=== PATIENT | male | born 1945 | race Caucasian/White ===

== ENCOUNTER 2022-02-25 17:54 | Inpatient (IN) | payer OTHER ==
[~2022-02-25] VITALS: Ht 172.7 cm; Wt 69.2 kg
[2022-02-25] MEDS ORDERED: ACCU-CHEK COMFORT CURVE STRIP VI ONE (19:30)
[2022-02-25 22:36] LABS: Basophils # (auto) 0 10 ^3/uL (0-0.2); Basophils % (auto) 0.3 % (0.0-2.0); Eosinophils # (auto) 0 10 ^3/uL (0-0.8); Eosinophils % (auto) 0.1 % (0.0-7.0); Hematocrit 45.8 % (41.0-53.0); Hemoglobin 14.2 g/dL (13.5-17.5); Lymphocytes # (auto) 0.4 10 ^3/uL (0.4-5.4); Lymphocytes % (auto) 6.5 % (10.0-50.0); Mean Corpuscular Hemoglobin 30.7 pg (28.0-32.0); Mean Corpuscular Hgb Conc. 30.9 g/dL (32.0-36.0); Mean Corpuscular Volume 99.3 fL (80.0-100.0); Monocytes # (auto) 0.9 10 ^3/uL (0-1.3); Monocytes % (auto) 13.8 % (0.0-12.0); Neutrophils # (auto) 4.9 10 ^3/uL (1.6-8.6); Neutrophils % (auto) 79.3 % (37.0-80.0); Nucleated Red Blood Cells % 0.1 %; Red Blood Cells 4.62 10^6/uL (4.5-5.90); Red Cell Distribution Width 15.3 % (11.8-14.3); White Blood Cell 6.2 10^3/uL (4.4-10.8)
[2022-02-25 23:09] LABS: Albumin 3.5 g/dL (3.4-5.0); Potassium 4.2 mmol/L (3.5-5.1)
[2022-02-25 23:12] LABS: Bilirubin, Total 0.8 mg/dL (0.2-1.0); Total Protein 6.5 g/dL (6.4-8.2)
[2022-02-25 23:19] LABS: Thyroid Stimulating Hormone 0.47 uIU/mL (0.358-3.74)
[2022-02-26] MEDS ORDERED: HYDROcodone-ACET 5/325MG TAB PO PRN (00:15)
[2022-02-26] MEDS ORDERED: DOCUSATE SOD 100 MG CAP PO PRN (00:15)
[2022-02-26] MEDS ORDERED: ACETAMINOPHEN 325 MG TAB PO PRN (00:15)
[2022-02-26] MEDS ORDERED: NITROGLYCERIN 0.4 MG SL TAB SL PRN (00:30)
[2022-02-26] MEDS ORDERED: MORPHINE SULFATE INJ 2 MG/ml SYRG IV PRN (00:30)
[2022-02-26 02:43] LABS: Eosinophils # (auto) 0 10 ^3/uL (0-0.8); Lymphocytes # (auto) 0.7 10 ^3/uL (0.4-5.4); Nucleated Red Blood Cells % 0.1 %
[2022-02-26 03:10] LABS: Albumin 3.5 g/dL (3.4-5.0); Potassium 4.2 mmol/L (3.5-5.1)
[2022-02-26 03:12] LABS: BUN/Creatinine Ratio 10.9
[2022-02-26 03:15] LABS: Bilirubin, Total 0.8 mg/dL (0.2-1.0); Total Protein 6.7 g/dL (6.4-8.2)
[2022-02-26 04:50] VITALS: BP 133/76
[2022-02-26 05:00] VITALS: BP 133/76
[2022-02-26 05:54] LABS: Basophils # (auto) 0 10 ^3/uL (0-0.2); Basophils % (auto) 0.4 % (0.0-2.0); Eosinophils % (auto) 0.1 % (0.0-7.0); Hematocrit 42.4 % (41.0-53.0); Hemoglobin 13.8 g/dL (13.5-17.5); Lymphocytes % (auto) 11.7 % (10.0-50.0); Mean Corpuscular Hemoglobin 30.9 pg (28.0-32.0); Mean Corpuscular Hgb Conc. 32.6 g/dL (32.0-36.0); Mean Corpuscular Volume 94.7 fL (80.0-100.0); Monocytes % (auto) 16.3 % (0.0-12.0); Neutrophils # (auto) 4.2 10 ^3/uL (1.6-8.6); Neutrophils % (auto) 71.5 % (37.0-80.0); Red Blood Cells 4.48 10^6/uL (4.5-5.90); White Blood Cell 5.9 10^3/uL (4.4-10.8)
[2022-02-26] MEDS: SODIUM CHLORIDE 0.9% 1,000 ML IV SCH ×2 (06:30→08:35)
[2022-02-26 08:10] VITALS: BP 126/79
[2022-02-26] MEDS: FAMOTIDINE (10MG/ML) 2ML VL IV SCH (09:43)
[2022-02-26] MEDS: ENOXAPARIN SOD 40 MG/0.4 ML SYRINGE SC SCH (09:43)
[2022-02-26 12:10] VITALS: BP 114/68
[2022-02-26] MEDS: ZINC SULFATE 220mg CAP or TAB PO SCH (12:15)
[2022-02-26] MEDS: CHOLECALCIFEROL (VITD3) 2,000 UNIT CAP/TAB PO SCH (12:15)
[2022-02-26] MEDS: ASCORBIC ACID 500 MG TAB PO SCH ×2 (12:17→21:23)
[2022-02-26 12:26] LABS: Urine Bacteria NONE SEEN /hpf (None Seen); Urine Blood Negative /uL (Negative); Urine Specific Gravity 1.014 (1.001-1.035); Urine WBC <1 /hpf (0 - 3)
[2022-02-26 16:15] VITALS: BP 119/71
[2022-02-26] MEDS ORDERED: LORazepam 2MG/ML-1ML VIAL IV PRN (17:15)
[2022-02-26 22:09] VITALS: BP 133/70
[2022-02-27 04:48] VITALS: BP 121/61
[2022-02-27 06:22] LABS: Hemoglobin 14.1 g/dL (13.5-17.5); Mean Corpuscular Hemoglobin 30.7 pg (28.0-32.0); Mean Corpuscular Hgb Conc. 32.7 g/dL (32.0-36.0); Mean Corpuscular Volume 93.7 fL (80.0-100.0); Red Blood Cells 4.59 10^6/uL (4.5-5.90); Red Cell Distribution Width 14.1 % (11.8-14.3)
[2022-02-27 06:56] LABS: Albumin 3.1 g/dL (3.4-5.0); Band Neutrophils % (manual) 0; Basophils % (manual) 0 (0.0-2.0); Blast Cells 0; Calcium 8.3 mg/dL (8.5-10.1); Eosinophils % (manual) 0 (0-7); Metamyelocytes % 0; Myelocytes % 0; Potassium 3.9 mmol/L (3.5-5.1); Promyelocytes % 0; Reactive Lymphocytes 0
[2022-02-27 07:00] LABS: BUN/Creatinine Ratio 11.5; Bilirubin, Total 0.5 mg/dL (0.2-1.0); Total Protein 6.4 g/dL (6.4-8.2)
[2022-02-27 08:29] LABS: Lymphocytes % (manual) 20 (10.0-50.0); Monocytes % (manual) 14 (0-12)
[2022-02-27] MEDS: FAMOTIDINE (10MG/ML) 2ML VL IV SCH (10:51)
[2022-02-27] MEDS: CHOLECALCIFEROL (VITD3) 2,000 UNIT CAP/TAB PO SCH (10:52)
[2022-02-27] MEDS: ASCORBIC ACID 500 MG TAB PO SCH ×2 (10:52→21:31)
[2022-02-27] MEDS: ZINC SULFATE 220mg CAP or TAB PO SCH (10:52)
[2022-02-27] MEDS: ENOXAPARIN SOD 40 MG/0.4 ML SYRINGE SC SCH (10:52)
[2022-02-27 10:55] LABS: Folate (Folic Acid) > 24.00 ng/mL (5.38-24)
[2022-02-27 18:47] LABS: Alcohol, Urine < 3.0 mg/dL (0-10); Amphetamine Screen, Urine NEGATIVE (NEGATIVE); Barbiturate Scree,Urine NEGATIVE (NEGATIVE); Benzodiazephine Screen, Urine NEGATIVE (NEGATIVE); Cannabinoid Screen, Urine NEGATIVE (NEGATIVE); Cocaine Screen, Urine NEGATIVE (NEGATIVE); Opiate Scree,Urine NEGATIVE (NEGATIVE); Phencyclidine Screen, Urine NEGATIVE (NEGATIVE)
[2022-02-28 00:22] VITALS: BP 134/76
[2022-02-28 04:36] VITALS: BP 135/76
[2022-02-28] MEDS: ZINC SULFATE 220mg CAP or TAB PO SCH (09:07)
[2022-02-28] MEDS: FAMOTIDINE (10MG/ML) 2ML VL IV SCH (09:07)
[2022-02-28] MEDS: ENOXAPARIN SOD 40 MG/0.4 ML SYRINGE SC SCH (09:07)
[2022-02-28] MEDS: ASCORBIC ACID 500 MG TAB PO SCH ×2 (09:07→22:29)
[2022-02-28] MEDS: CHOLECALCIFEROL (VITD3) 2,000 UNIT CAP/TAB PO SCH (09:07)
[2022-02-28 20:00] VITALS: BP 122/69
[2022-02-28 22:00] VITALS: BP 122/69
[2022-03-01 05:00] VITALS: BP 135/77
[2022-03-01 08:33] VITALS: BP 122/22
[2022-03-01] MEDS: ASCORBIC ACID 500 MG TAB PO SCH ×2 (09:40→21:38)
[2022-03-01] MEDS: ZINC SULFATE 220mg CAP or TAB PO SCH (09:40)
[2022-03-01] MEDS: CHOLECALCIFEROL (VITD3) 2,000 UNIT CAP/TAB PO SCH (09:40)
[2022-03-01] MEDS: ENOXAPARIN SOD 40 MG/0.4 ML SYRINGE SC SCH (09:41)
[2022-03-01 11:55] VITALS: BP 137/85
[2022-03-01] MEDS: ONDANSETRON HCL 4 MG/2 ML VIAL IV PRN (12:06)
[2022-03-01 17:02] VITALS: BP 139/85
[2022-03-01 20:00] VITALS: BP 121/72
[2022-03-01 22:00] VITALS: BP 121/72
[2022-03-02 05:00] VITALS: BP 132/72
[2022-03-02] MEDS: ONDANSETRON HCL 4 MG/2 ML VIAL IV PRN (06:19)
[2022-03-02 08:38] VITALS: BP 124/73
[2022-03-02] MEDS: CHOLECALCIFEROL (VITD3) 2,000 UNIT CAP/TAB PO SCH (10:11)
[2022-03-02] MEDS: ZINC SULFATE 220mg CAP or TAB PO SCH (10:11)
[2022-03-02] MEDS: ENOXAPARIN SOD 40 MG/0.4 ML SYRINGE SC SCH (10:11)
[2022-03-02] MEDS: ASCORBIC ACID 500 MG TAB PO SCH ×2 (10:11→21:26)
[2022-03-02 13:00] VITALS: BP 121/70
[2022-03-02 16:33] VITALS: BP 139/82
[2022-03-02 21:39] VITALS: BP 135/78
[2022-03-03 04:26] VITALS: BP 148/78
[2022-03-03 09:00] VITALS: BP 141/89
[2022-03-03] MEDS: ZINC SULFATE 220mg CAP or TAB PO SCH (09:40)
[2022-03-03] MEDS: ASCORBIC ACID 500 MG TAB PO SCH (09:40)
[2022-03-03] MEDS: CHOLECALCIFEROL (VITD3) 2,000 UNIT CAP/TAB PO SCH (09:40)
[2022-03-03] MEDS: ENOXAPARIN SOD 40 MG/0.4 ML SYRINGE SC SCH (09:40)
[2022-03-03 13:00] VITALS: BP 140/91
[2022-03-03 17:13] VITALS: BP 142/76
== END 2022-03-03 17:45 | DRG 70 ==
LOC: ER 17:54 → EDBD 17:54 → TELE 02-26 00:25 → TELE-EAST 02-26 04:50
PROVIDERS: ADMIT Nurse Practitioner Family; ATTEND Internal Medicine Geriatric Medicine
DX: G93.89 Other specified disorders of brain (principal); U07.1 COVID-19; G91.2 (Idiopathic) normal pressure hydrocephalus; S00.93XA Contusion of unspecified part of head, initial encounter; R55 Syncope and collapse; W18.39XA Other fall on same level, initial encounter; Y93.89 Activity, other specified; Y92.89 Other specified places as the place of occurrence of the external cause; Z82.3 Family history of stroke; Y99.8 Other external cause status; Z87.891 Personal history of nicotine dependence
CPT/HCPCS: 36415; 70450; 71045; 72125; 80053; 80307; 81001; 82607; 82746; 82962; 84443; 84484; 84702; 85007; 85025; 85027; 93005; 93306; 93886; 95819; 96372; 96374; 97110; 97116; 97163; 97530; G0378; J2405; J3490